=== PATIENT | male | born 1970 | race Caucasian/White ===

== ENCOUNTER 2023-12-15 09:59 | Outpatient (AMB) | payer OTHER, SELFPAY ==
[2023-12-15 10:01] VITALS: BP 118/78; PULSE 80; O2SAT 96; BMI 26.5
--- NOTE | 2023-12-15 10:01 | A.OFFVIS_ITS ---
Intake Vital Signs 12/15/23 10:01 Height 5 ft 9 in Weight 179 lb 10.828 oz BMI 26.5 BP 118/78 Blood Pressure Location Rt brachial Position Sitting Pulse 80 Pulse Source Doppler Pulse Oximetry (%) 96 Oxygen Delivery Method Room Air Intake Visit Reasons: Wheezing Allergies No Known Allergies Allergy (Verified 12/15/23 10:06) HPI Wheezing HPI Details 53-year-old gentleman with underlying my otonic dystrophy (unclear what type) referred for evaluation of his pulmonary symptoms. Patient has been complaining of dyspnea on exertion, intermittent cough and wheezing. Patient does have underlying history of childhood asthma. He is currently on trilogy 200, albuterol MDI, t.i.w. azithromycin, and prednisone. He denies family history of lung disease. Patient states that he started getting myotonic dystrophy symptoms approximately 6 years prior. Patient states that he has had a recent normal cardiac workup, at the same time he states that he did have a recent episode of AFib versus AFlutter for which he is following with [facility]. Patient states that he did have prior pulmonary function testing and some chest imaging either at [facility] or at [facility]. [facility] Social History (Updated 12/15/23 @ 10:10 by Wilma Bean Carlos) Patient Tobacco Use Status: Never used Tobacco Review of Systems Const Denies daytime sleepiness, Denies excessive sweating, Denies fatigue, Denies fever(s), Denies lethargy, Denies malaise, Denies night sweats, Denies snoring and Denies weight loss Eyes Denies blurry vision and Denies itchy eyes ENT Denies nasal congestion, Denies post nasal drip, Denies sinus pain, Denies sinus pressure and Denies other ( Thrush) Card Denies chest pain, Denies pedal edema, Denies dyspnea, Reports dyspnea on exertion, Denies orthopnea and Denies paroxysmal nocturnal dyspnea Resp Reports cough, Denies hemoptysis, Reports excessive phlegm production, Denies dyspnea, Reports dyspnea on exertion, Denies snoring and Reports wheezing GI Denies abdominal pain and Denies heartburn Musc Denies myalgias, Denies arthralgias and Denies joint swelling Skin/Breast Denies rash Neuro Denies memory loss and Denies seizure-like activity Psych Denies abnormal sleep pattern, Denies anxiety and Denies memory loss Endo Denies excessive sweating, Denies fatigue and Denies heat intolerance Angelito/Lymph Denies easy bruising Aller/Immun Denies itchy eyes, Denies seasonal rhinorrhea and Reports wheezing Physical Exam Vital Signs: Last Vital Signs Pulse 80 12/15/23 10:01 BP 118/78 12/15/23 10:01 Pulse Ox 96 12/15/23 10:01 Oxygen Delivery Method Room Air 12/15/23 10:01 BMI result Body Mass Index 26.5 Const General: no acute distress and alert Nutritional Appearance: not obese Orientation/consciousness: Other orientation findings ( oriented) HEENT Head: Yes atraumatic Eyes General: appearance normal, both eyes and all related structures Sclerae: sclerae normal EOM: EOMs intact bilaterally Neck Neck: Yes supple Lymphatic: no lymphadenopathy noted Resp Effort & Inspection: normal respiratory effort and no use of accessory muscles Auscultation: clear to auscultation bilaterally Cardio Rate: regular rate Rhythm: regular rhythm Heart sounds: no gallops, no murmurs and no rubs Skin General skin exam: other ( warm) Extrem General: No clubbing, No cyanosis and No edema Assessment & Plan Assessment & Plan (1) Dyspnea on exertion: Code(s): R06.09 - Other forms of dyspnea Plan: Unclear etiology, may have cardiac, pulmonary, neurologic etiologies. Will obtain recent studies from [facility] and [facility]. 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 If no recent CT chest available, will obtain CT imaging. (3) Asthma: Code(s): J45.909 - Unspecified asthma, uncomplicated Plan: Will continue current regimen of trilogy and albuterol MDI until PFT results are available. Coding Level of Care Code New Pt Level 4 (05015) Diagnoses Dyspnea on exertion R06.09 Myotonic dystrophy G71.11 Asthma J45.909
== END 2023-12-15 10:31 | disposition home or self-care (01) ==
PROVIDERS: PCP Internal Medicine; Visit Provider Internal Medicine Pulmonary Disease
DX: R06.09 Other forms of dyspnea (principal); G71.11 Myotonic muscular dystrophy; J45.909 Unspecified asthma, uncomplicated
CPT/HCPCS: 99204

== ENCOUNTER → 2023-12-15 09:59 | Outpatient (BNVA) | payer OTHER, SELFPAY | PROVIDERS: PCP Internal Medicine; Visit Provider Internal Medicine Pulmonary Disease ==

== ENCOUNTER 2024-01-07 15:01 | Outpatient (AMB) | payer OTHER, SELFPAY ==
--- NOTE | 2024-01-07 15:02 | MHC.OFFVIS ---
Intake Vital Signs 01/07/24 15:03 Height 5 ft 9 in Weight 181 lb 14.102 oz BMI 26.9 BP 110/62 Blood Pressure Location Rt brachial Position Sitting Pulse 80 Pulse Source Doppler Pulse Oximetry (%) 95 Oxygen Delivery Method Room Air Intake Visit Reasons: Wheezing Allergies No Known Allergies Allergy (Verified 12/15/23 10:06) HPI Wheezing HPI Details 53-year-old gentleman with underlying myotonic dystrophy (unclear what type) referred for evaluation of his pulmonary symptoms. Patient has been complaining of dyspnea on exertion, intermittent cough and wheezing. Patient does have underlying history of childhood asthma. He is currently on trilogy 200, albuterol MDI, t.i.w. azithromycin, and prednisone. He denies family history of lung disease. Patient states that he started getting myotonic dystrophy symptoms approximately 6 years prior. Patient states that he has had a recent normal cardiac workup, at the same time he states that he did have a recent episode of AFib versus AFlutter for which he is following with [facility]. Patient states that he did have prior pulmonary function testing and some chest imaging either at [facility] or at [facility]. After the last office visit patient continued with cardiology workup and now his plans for cardioversion and ablation of his underlying AFlutter [facility] Social History Patient Tobacco Use Status: Never used Tobacco Review of Systems Const Denies daytime sleepiness, Denies excessive sweating, Denies fatigue, Denies fever(s), Denies lethargy, Denies malaise, Denies night sweats, Denies snoring and Denies weight loss Eyes Denies blurry vision and Denies itchy eyes ENT Denies nasal congestion, Denies post nasal drip, Denies sinus pain, Denies sinus pressure and Denies other ( Thrush) Card Denies chest pain, Denies pedal edema, Denies dyspnea, Denies orthopnea and Denies paroxysmal nocturnal dyspnea Resp Denies cough, Denies hemoptysis, Denies excessive phlegm production, Denies dyspnea, Denies snoring and Denies wheezing GI Denies abdominal pain and Denies heartburn Musc Denies myalgias, Denies arthralgias and Denies joint swelling Skin/Breast Denies rash Neuro Denies memory loss and Denies seizure-like activity Psych Denies abnormal sleep pattern, Denies anxiety and Denies memory loss Endo Denies excessive sweating, Denies fatigue and Denies heat intolerance Angelito/Lymph Denies easy bruising Aller/Immun Denies itchy eyes, Denies seasonal rhinorrhea and Denies wheezing Physical Exam Vital Signs: Last Vital Signs Pulse 80 01/07/24 15:03 BP 110/62 01/07/24 15:03 Pulse Ox 95 01/07/24 15:03 Oxygen Delivery Method Room Air 01/07/24 15:03 BMI result Body Mass Index 26.9 Const General: no acute distress and alert Nutritional Appearance: not obese Orientation/consciousness: Other orientation findings ( oriented) HEENT Head: Yes atraumatic Eyes General: appearance normal, both eyes and all related structures Sclerae: sclerae normal EOM: EOMs intact bilaterally Neck Neck: Yes supple Lymphatic: no lymphadenopathy noted Resp Effort & Inspection: normal respiratory effort and no use of accessory muscles Auscultation: clear to auscultation bilaterally Cardio Rate: regular rate Rhythm: regular rhythm Heart sounds: no gallops, no murmurs and no rubs Skin General skin exam: other ( warm) Extrem General: No clubbing, No cyanosis and No edema Assessment & Plan Assessment & Plan (1) Asthma: Code(s): J45.909 - Unspecified asthma, uncomplicated (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 Will continue trilogy at this time. Will consider re-evaluation with pulmonary function test if not better after ablation. Coding Level of Care Code Est Pt Level 4 (93645) Diagnoses Asthma J45.909 Myotonic dystrophy G71.11 Dyspnea on exertion R06.09
[2024-01-07 15:03] VITALS: BP 110/62; PULSE 80; O2SAT 95; BMI 26.9
== END 2024-01-07 15:28 | disposition home or self-care (01) ==
PROVIDERS: PCP Internal Medicine; Visit Provider Internal Medicine Pulmonary Disease
DX: J45.909 Unspecified asthma, uncomplicated (principal); G71.11 Myotonic muscular dystrophy; R06.09 Other forms of dyspnea
CPT/HCPCS: 99214

== ENCOUNTER → 2024-01-07 15:01 | Outpatient (BNVA) | payer OTHER, SELFPAY | PROVIDERS: PCP Internal Medicine; Visit Provider Internal Medicine Pulmonary Disease ==